=== PATIENT | female | born 1960 | race Two or more races ===

== ENCOUNTER 2024-12-27 01:56 | Emergency (ER) | payer MEDICAID ==
[~2024-12-27] VITALS: Ht 170.2 cm; Wt 69.9 kg
[2024-12-27 02:10] VITALS: BP 147/78; PULSE 110; RESP 20; TEMP 98.4; O2SAT 96
[2024-12-27 02:38] LABS: Urine Bacteria FEW /hpf (None Seen); Urine Blood 3+ /uL (Negative); Urine Clarity Turbid (Clear); Urine Color Colorless (Yellow); Urine Protein, UAD 1+ (Negative); Urine Specific Gravity 1.003 (1.001-1.035); Urine Squamous Epithelial Cell FEW /hpf (<5); Urine Urobilinogen Normal (Negative); Urine WBC 135 /HPF (0-5); Urine WBC Clumps PRESENT /hpf (None Seen)
--- NOTE | 2024-12-27 02:55 | ED.PDOC ---
General HPI Comments PT C/O 04/01 PAIN DURING URINATION SINCE 2200 LAST NIGHT. PT REPORTS URINARY FREQUENCY AND BLOOD IN URINE. PT A&OX4, VSS, RR EVEN AND UNLABORED ON RA. DENIES FLANK PAIN, FEVER, CHILLS, NAUSE, AND VOMITING. Chief Complaint: Urinary Time Seen by MD: 02:36 Reviewed notes: Nurses Notes, Medications, Allergies Allergies: Coded Allergies: Ciprofloxacin (Verified Allergy, Unknown, 12/27/24) Clindamycin (Verified Allergy, Unknown, 12/27/24) Erythromycin (Verified Allergy, Unknown, 12/27/24) Ibuprofen (Verified Allergy, Unknown, 12/27/24) Penicillins (Verified Allergy, Unknown, 12/27/24) Home Meds Active Scripts Phenazopyridine HCl (Phenazopyridine Hydrochlo) 100 Mg Tab, 100 MG PO BID PRN for 2 Days, #4 TAB Prov:RICH WHITE 12/27/24 Sulfamethoxazole W/Trimethopri (Bactrim Ds Tablet) 1 Tab Tb, 1 TAB PO BID for 5 Days, #10 TAB Prov:RICH WHITEP 12/27/24 Information Source: Patient Mode of Arrival: Ambulatory Constitutional: denies: chills, diaphoresis, fatigue, fever, malaise, sweats, weakness, others EENTM: denies: blurred vision, double vision, ear bleeding, ear discharge, ear drainage, ear pain, ear ringing, eye pain, eye redness, hearing loss, mouth pain, mouth swelling, nasal discharge, nose bleeding, nose congestion, nose pain, photophobia, tearing, throat pain, throat swelling, voice changes, others Respiratory: denies: cough, hemoptysis, orthopnea, SOB at rest, shortness of breath, SOB with excertion, stridor, wheezing, others Gastrointestinal: denies: abdomen distended, abdominal pain, blood streaked bowels, constipated, diarrhea, dysphagia, difficulty swallowing, hematemesis, melena, nausea, poor appetite, poor fluid intake, rectal bleeding, rectal pain, vomiting, others Genitourinary: reports: burning; denies: abnormal vagina bleeding, dyspareunia, dysuria, flank pain, frequency, hematuria, incontinence, pain, , vagina discharge, urgency, others Neurological: denies: dizziness, fainting, headache, left sided numbness, left sided weakness, numbness, paresthesia, pre-existing deficit, right sided numbness, right sided weakness, seizure, speech problems, tingling, tremors, weakness, others Musculoskeletal: denies: back pain, gout, joint pain, joint swelling, muscle pain, muscle stiffness, neck pain, others Integumetry: denies: bruises, change in color, change in hair/nails, dryness, laceration, lesions, lumps, rash, wounds, others Allergic/Immunocompromised: denies: Difficulty Healing, Frequent Infections, Hives, Itching, others Hematologic/Lymphatic: denies: anemia, blood clots, easy bleeding, easy bruising, swollen glands, others Endocrine: denies: excessive hunger, excessive sweating, excessive thirst, excessive urination, flushing, intolerance to cold, intolerance to heat, unexplained weight gain, unexplained weight loss, others Psychiatric: denies: anxiety, bipolar disorder, depression, hopeless, panic disorder, schizophrenia, sleepless, suicidal, others Physical Exam General Appearance: No Apparent Distress, Normal HEENT: Pharynx Normal Neck: Full Range of Motion, Non-Tender Respiratory: Lungs Clear, No Respiratory Distress, Normal Breath Sounds Cardiovascular: No Edema, No JVD, No Murmur, No Gallop, Normal Peripheral Pulses, Regular Rate/Rhythm Breast Exam: Deferred Gastrointestinal: No Organomegaly, Non Tender, No Pulsatile Mass, Normal Bowel Sounds, Soft, Other (NEGATIVE CVA TENDERNESS) Genitalia: Deferred Pelvic: Deferred Rectal: Deferred Extremities: Normal capillary refill, Normal inspection, Normal range of motion, Non-tender, No pedal edema Musculoskeletal : Apperance: Normal Neurologic: Alert, hand ii blocker II-XII nml as Tested, No Motor Deficits, Normal Affect, Normal Mood, No Sensory Deficits Cerebellar Function: Normal Reflexes: Normal Skin: Dry, Normal Color, Warm Lymphatic: No Adenopathy Was a procedure done? Was a procedure done?: No Differential Diagnosis Kidney stone (Female): Urinary obstruction, Urolithiasis Urinary Problem (Female): Pyelonephritis, UTI, Vaginitis X-Ray, Labs, Meds, VS Vital Signs Date Time Temp Pulse Resp B/P (MAP) Pulse Ox O2 Delivery O2 Flow Rate FiO2 12/27/24 02:10 Room Air 12/27/24 02:10 98.4 110 20 147/78 (101) 96 98.4 12/27/24 02:10 98.4 110 20 147/78 (101) 96 98.4 Lab Test 12/27/24 02:00 Range/Units Urine Color Colorless Yellow Urine Clarity Turbid H Clear Urine pH 7.0 5.0-9.0 Urine Specific Gary 1.003 1.001-1.035 Urine Protein 1+ H Negative Urine Ketones Negative Negative Urine Blood 3+ H Negative /uL Urine Nitrite Negative Negative Urine Bilirubin Negative Negative Urine Urobilinogen Normal Negative mg/dL Urine Leukocyte Esterase 3+ Negative /uL Urine RBC 10 0 - 4 /hpf Urine WBC Clumps Present None Seen /hpf Urine Microscopic WBC 135 H 0-5 /HPF Urine Squamous Epithelial Cells Few <5 /hpf Urine Bacteria Few H None Seen /hpf Urine Glucose Normal Normal mg/dL Current Medications Medications (Trade) Dose Ordered Sig/Steffanie Route Start Time Stop Time Status Last Admin Trimethoprim/ Sulfamethoxazole (Bactrim Ds Tablet) 1 tab ONCE ONCE PO 12/27/24 03:15 12/27/24 03:16 DC 12/27/24 03:14 Phenazopyridine HCl (Pyridium Tablet) 200 mg ONCE ONCE PO 12/27/24 03:15 12/27/24 03:16 DC 12/27/24 03:14 X-Ray, Labs, Meds, VS Comment UA POSITIVE FOR INFECTION. PATIENT GIVEN BACTRIM DS AND PYRIDIUM PRIOR TO DISCHARGE. SCRIPT BACTRIM TWICE DAILY X5 DAYS AND PYRIDIUM. ADVISED TO TAKE MEDICATION PRESCRIBED SIDE EFFECTS DISCUSSED. INCREASE P.O. FLUIDS WITH ELECTROLYTES. ADVISED TO FOLLOW UP WITH HER PCP IN 2 DAYS OR SOONER REPEAT URINE IF SYMPTOMS PERSIST. ER RETURN PRECAUTIONS GIVEN PATIENT INDICATES UNDERSTANDING AND AGREES WITH DISCHARGE PLAN OF CARE. Time of 1ST Reevaluation: 02:35 Reevaluation 1ST: Unchanged Time of 2ND Reevaluation: 03:21 Reevaluation 2ND: Improved Patient Education/Counseling: Diagnosis, Treatment, Prognosis, Need For Follow Up Family Education/Counseling: No Family Present Departure 1 Departure Time of Disposition: 03:21 Impression: Primary Impression: Cystitis with hematuria Disposition: 01 HOME / SELF CARE / HOMELESS Condition: Stable e-Prescriptions Phenazopyridine HCl (Phenazopyridine Hydrochlo) 100 Mg Tab 100 MG PO BID PRN for 2 Days, #4 TAB Prov: RICH WHITE 12/27/24 Sulfamethoxazole W/Trimethopri (Bactrim Ds Tablet) 1 Tab Tb 1 TAB PO BID for 5 Days, #10 TAB Prov: RICH WHITE 12/27/24 Discharged With: Self Critical Care Note Critical Care Time?: No Stability Stability form required: No RIHC WHITE December 27, 2024 02:55
[2024-12-27] MEDS ORDERED: BACDST PO (02:57)
[2024-12-27] MEDS ORDERED: cefTRIAXone SOD 1,000 MG VL IM ONE (03:00)
[2024-12-27] MEDS: SULFAMETHOX W/TRIMETH(800/160MG) DS TAB PO ONE (03:14)
[2024-12-27] MEDS: PHENAZOPYRIDINE HCL 100 MG TAB PO ONE (03:14)
[2024-12-27] MEDS ORDERED: PHEN-1044 PO (03:24)
== END 2024-12-27 03:24 | disposition home or self-care (01) ==
LOC: ER 01:56
DX: N30.91 Cystitis, unspecified with hematuria (principal); Z88.0 Allergy status to penicillin; Z88.1 Allergy status to other antibiotic agents; Z88.6 Allergy status to analgesic agent; Z88.8 Allergy status to other drugs, medicaments and biological substances
CPT/HCPCS: 81001